=== PATIENT | male | born 1960 ===

== ENCOUNTER 2020-08-20 07:16 | Outpatient (CLI) | payer MEDICARE, SELFPAY ==
--- NOTE | 2020-09-23 08:06 | WPDHOMESLEEP ---
Sleep Study - Home Unattended Date of Study: 08/20/20 Ordering Provider: Hayden Ko APRN Interpreting Physician: Radha Mancia MD Home Sleep Study Type: Apnea Link Air Height: 1.88 m Weight: 152.407 kg Body Mass Index: 43.1 Neck Circumference (inches): 17 Reason for Sleep Study history of obstructive sleep apnea, currently not using CPAP Sleep History Jake Kim is a 60 year-old man with a history of obstructive sleep apnea. he has been on treatment in the past but stopped using it. He does have oxygen at home and he has been using this at night instead place of CPAP and says that he feels fine. He is having a home sleep test to determine if he still has significant sleep disordered breathing. He was instructed to use the home sleep test without supplemental oxygen. He did not fill out his sleep survey so there is no additional sleep history from the present however he had a prior CPAP titration in the sleep lab on September 04, 2018. At that time he had been on CPAP 11 cm., and was titrated to 14 cm water pressure during the re-titration using a large Airfit P10 nasal pillow and a chin strap. [facility] Past Medical History Medical History Congestive heart failure CPAP (continuous positive airway pressure) dependence Obstructive sleep apnea Family History Family History Father Diabetes mellitus Hypertension Mother Diabetes mellitus Hypertension Social History Social History Smoking status: Former smoker Smoking end date: 10/04/00 Medications Home Medications Medication Instructions Recorded Confirmed Type albuterol sulfate 90 mcg/actuation 1 inh INHALATION Q4-6H PRN 07/17/20 07/18/20 History breath activated powder inhaler amlodipine 2.5 mg tablet 2.5 mg PO DAILY 07/17/20 07/18/20 History aspirin 81 mg tablet,delayed 81 mg PO DAILY 07/17/20 07/18/20 History release atorvastatin 80 mg tablet 80 mg PO DAILY 07/17/20 07/18/20 History clotrimazole 1 % topical cream 1 applic TOPICAL Q12H 07/17/20 07/18/20 History ergocalciferol (vitamin D2) 1,250 1,250 mcg PO WEEKLY 07/17/20 07/18/20 History mcg (50,000 unit) capsule exenatide microspheres 2 mg/0.65 2 mg SUBCUT Q7D 07/17/20 07/18/20 History mL subcutaneous pen injector furosemide 40 mg tablet 40 mg PO DAILY tablet 07/17/20 07/18/20 History glimepiride 1 mg tablet 1 mg PO DAILY tablet 07/17/20 07/18/20 History glimepiride 2 mg tablet 2 mg PO DAILY tablet 07/17/20 07/18/20 History lisinopril 40 mg tablet 40 mg PO DAILY 07/17/20 07/18/20 History metformin 1,000 mg tablet 1,000 mg PO DAILY 07/17/20 07/18/20 History potassium chloride 10 mEq 10 meq PO DAILY 07/17/20 07/18/20 History capsule,extended release tramadol 50 mg tablet 50 mg PO Q6H PRN 07/17/20 07/18/20 History umeclidinium 62.5 mcg-vilanterol 1 inh INHALATION DAILY 07/17/20 07/18/20 History 25 mcg/actuation powdr for inhalation Sleep Procedure This test was performed using 4 channel monitoring including respiratory effort channel, snoring channel, heart rate channel, and oxygen saturation channel. This study was scored using CMS guidelines. Sleep Architecture Not applicable for home sleep test. Respiratory Analysis The recording time was 8 hours 39 minutes. Evaluation time 8 hours 25 minutes. The apnea-hypopnea index is 3.8. He had no apneas. He had 32 hypopneas. Oximetry Data His oxygen desaturation index is 3.8 which is normal. The average saturation was 97%. the lowest desaturation was 92%. The patient had 32 desaturations of 4% or greater with no time spent below 88%. Snoring Profile Snoring was minimal 87 events. Cardiac Profile Heart rate minimum 53 maximum 81, average pulse 64. Assessment and Plan Assessment and Plan (1) Obstructive sleep apnea: Onset Date: ~2009 Code(
[2020-09-23 08:22] VITALS: BMI 43.1
== END 2020-08-20 07:17 | disposition home or self-care (01) ==
LOC: ANHCSM 07:16
PROVIDERS: Visit Provider Nurse Practitioner Family
DX: G47.33 Obstructive sleep apnea (adult) (pediatric) (principal)
CPT/HCPCS: 95806

== ENCOUNTER 2022-01-19 09:41 | Outpatient (RCR) | payer MEDICARE, SELFPAY ==
[2022-01-19 10:15] VITALS: BMI 50.5
--- NOTE | 2022-02-02 10:34 | PCWOUND ---
WOCN NOTE Patient did not show up for his scheduled appointment today 02/02/22 at 1000. Called patient and he apologized that he forgot all about it. Patient states the wound is doing well and that he does not need to make a follow up appointment at this time. Will contact the wound center for any questions or concerns. Also inquired about a home supply order for bandages, states he never received supplies. DME company rep e-mailed, rep to look into situation.
== END 2022-04-07 08:02 | disposition home or self-care (01) ==
LOC: ANHWOC 09:41
PROVIDERS: PCP Internal Medicine; Visit Provider Internal Medicine
DX: S31.109D Unspecified open wound of abdominal wall, unspecified quadrant without penetration into peritoneal cavity, subsequent encounter (principal)
CPT/HCPCS: 99212; A9270; G0463